=== PATIENT | male | born 1995 | race Caucasian/White ===

== ENCOUNTER 2017-12-13 12:45 | Observation (INO) ==
[2017-12-13] MEDS ORDERED: Sod Chloride 0.9% Inj 1,000 ML IV.SIG ONE (14:13)
[2017-12-13 14:35] LABS: Baso # (Auto) 0.1 th/mm3 (0.0-0.2); Baso % (Auto) 0.5 % (0.0-2.0); Eos % (Auto) 0.5 % (0.0-4.0); Hematocrit 38.6 % (39.0-51.0); Hemoglobin 13.1 gm/dL (13.0-17.0); Lymph # (Auto) 0.7 th/mm3 (1.0-4.8); Lymph % (Auto) 6.5 % (9.0-44.0); Mean Corpuscular Hemoglobin 27.7 pg (27.0-34.0); Mean Corpuscular Volume 81.5 fL (80.0-100.0); Mean Platelet Volume 7.9 fL (7.0-11.0); Mono # (Auto) 0.8 th/mm3 (0.0-0.9); Mono % (Auto) 7.8 % (0.0-8.0); Neut # (Auto) 8.7 th/mm3 (1.8-7.7); Neut % (Auto) 84.7 % (16.0-70.0); Platelet Count 302 th/mm3 (150-450); Red Blood Count 4.74 mil/mm3 (4.50-5.90); Red Cell Distribution Width 15.4 % (11.6-17.2); White Blood Count 10.3 th/mm3 (4.0-11.0)
--- NOTE | 2017-12-13 14:45 | CT ---
EXAM DATE: 12/13/2017 2:37 PM EDT AGE/SEX: 22 years / Male INDICATIONS: New onset of seizures today hit left parietal occipital area CLINICAL DATA: This is the patient's initial encounter. Patient reports that signs and symptoms have been present for 1 day and indicates a pain score of 3/10. MEDICAL/SURGICAL HISTORY: None. None. RADIATION DOSE: 56.35 CTDI (mGy) COMPARISON: No prior exams available for comparison. TECHNIQUE: CT of the head without contrast. Using automated exposure control and adjustment of the mA and/or kV according to patient size, radiation dose was kept as low as reasonably achievable to ob tain optimal diagnostic quality images. DICOM format image data is available electronically for revi ew and comparison. FINDINGS: Cerebrum: The ventricles are normal for age. No evidence of midline shift, mass lesion, hemorrhage or acute infarction. No extraaxial fluid collections are seen. Posterior Fossa: The cerebellum and brainstem are intact. The 4th ventricle is midline. The cerebe llopontine angle is unremarkable. Extracranial: The visualized portion of the orbits is intact. Skull: The calvaria is intact. No evidence of skull fracture. CONCLUSION: 1. Negative CT Head non contrast. . Electronically signed by: Iron Savage MD 12/13/2017 2:43 PM EDT
[2017-12-13 14:53] LABS: Alanine Aminotransferase 20 U/L (12-78); Albumin 3.5 g/dL (3.4-5.0); Anion Gap 6 meq/L (5-15); Aspartate Aminotransferase 19 U/L (15-37); Blood Urea Nitrogen 8 mg/dL (7-18); Calcium 8.5 mg/dL (8.5-10.1); Carbon Dioxide 28.9 meq/L (21.0-32.0); Chloride 104 meq/L (98-107); Glomerular Filtration Rate Greater Than 89 mL/min (>89); Glucose,Random 79 mg/dL (74-106); Potassium 3.5 meq/L (3.5-5.1); Sodium 139 meq/L (136-145)
[2017-12-13 14:55] LABS: Alkaline Phosphatase 63 U/L (45-117); Creatine Kinase 138 U/L (39-308); Total Protein 6.7 g/dL (6.4-8.2)
--- NOTE | 2017-12-13 15:16 | XR ---
EXAM DATE: 12/13/2017 3:09 PM EDT AGE/SEX: 22 years / Male INDICATIONS: Left elbow pain; fall after seizure. CLINICAL DATA: This is the patient's initial encounter. Patient reports that signs and symptoms have been present for 1 day and indicates a pain score of 6/10. MEDICAL/SURGICAL HISTORY: None. None. COMPARISON: No prior exams available for comparison. FINDINGS: Bony structures are intact and in normal alignment. Joints are intact without dislocation or signifi cant arthropathy. Osseous density is normal. Soft tissues are unremarkable. No radiopaque foreign bodies seen. There is no evidence of a joint effusion. CONCLUSION: Unremarkable examination. Electronically signed by: Iron Savage MD 12/13/2017 3:15 PM EDT
--- NOTE | 2017-12-13 15:16 | XR ---
EXAM DATE: 12/13/2017 3:10 PM EDT AGE/SEX: 22 years / Male INDICATIONS: Pelvic pain after seizure. CLINICAL DATA: This is the patient's initial encounter. Patient reports that signs and symptoms have been present for 1 day and indicates a pain score of 6/10. MEDICAL/SURGICAL HISTORY: None. None. COMPARISON: No prior exams available for comparison. FINDINGS: Examination of the pelvis demonstrates no evidence of fracture or dislocation. Bony mineralization i s normal. There is no widening of the sacroiliac joints. No foreign body is identified. There is go od alignment of the SI joints and pubic symphysis. CONCLUSION: Unremarkable examination. Electronically signed by: Iron Savage MD 12/13/2017 3:15 PM EDT
[2017-12-13 15:56] LABS: Amphetamine Screen,Urine Neg (Neg); Barbiturate Screen,Urine Neg (Neg); Cannabinoid Screen,Urine Pos (Neg); Cocaine Screen,Urine Neg (Neg)
[2017-12-13 15:58] LABS: Opiate Screen,Urine Neg (Neg)
--- NOTE | 2017-12-13 16:05 | ED ---
HPI General Chief complaint: Seizure Stated complaint: WC/ Fall pos seizure Time Seen by Provider: 12/13/17 14:05 Source: patient and RN notes reviewed Mode of arrival: ambulatory History of Present Illness HPI narrative: 22yM presenting with first-time seizure. The patient states that he had been taking 1 mg Xanax BID regularly until 1 week ago, when he abruptly stopped. He says that today he was at work on a ledge approximately 3 feet above the ground when his coworkers start to see him "shake" and become unresponsive, falling backward to the ground. His mother was present and says that he was shaking for about 5 minutes and had a 10-15 minute period of confusion afterward. No tongue biting or loss of bowel/ bladder control. The patient reports pain to his left elbow and left hip (landed on his left side). Does not use any anticoagulants or antiplatelets. No history of seizures in the past, no family history of seizures, admits to marijuana use but denies other illicit drug use. Related Data Home Medications Medication Instructions Recorded Confirmed No Known Home Medications 12/13/17 12/13/17 Allergies Allergy/AdvReac Type Severity Reaction Status Date / Time No Known Allergies Allergy Unverified 12/13/17 14:04 Review of Systems ROS: all other systems reviewed are negative Constitutional Denies fever(s) Eyes Denies blurry vision ENT Denies nasal congestion Cardiovascular Denies chest pain Respiratory Denies cough Gastrointestinal Denies nausea Genitourinary Denies dysuria Musculoskeletal Denies back pain Neurologic Denies confusion Psychiatric Denies confusion PMFSH History History Provided By: Patient Medical History Medical History Anxiety (Acute) Crohns disease (Acute) Surgical History Surgical History No history of previous surgery (Acute) Social History Social History Substance History: Active Abuse Second Hand Smoke Exposure: No Smoking Status: Never smoker How Often Do You Have a Drink Containing Alcohol: Never Recent Travel in [facility] within the Last 8 Weeks: No Recent Out of Country Travel within the Last 8 Weeks: No Substance Abuse Detail Marijuana: Substance Use Status: Active Immunization History Tetanus Immunization: Unsure Hx Influenza Vaccine This Season: No Exam Const General: healthy appearing and no acute distress [facility] Head: normocephalic and atraumatic Face and sinus: normal facial exam Eyes General: appearance normal, both eyes and all related structures Pupils: PERRL Neck Other: No midline cervical spinal tenderness Chest Chest: normal inspection of the chest Resp Effort & Inspection: normal respiratory effort Auscultation: no rhonchi and no wheezes Cardio Rate: regular rate Rhythm: regular rhythm GI Inspection: non-distended Palpation: soft and nontender Back/Spine/Pelvis Other: No midline thoracolumbar tenderness Mild tenderness to left iliac crest, no crepitus, no ecchymosis Leg lengths equal Skin General: no rashes or lesions noted Neuro General: alert, awake and oriented x3 Other: Pupils 3 mm and reactive bilaterally GCS 15, speech clear and fluent, no slurred speech or confusion Motor strength 5/5, no pronator drift, sensation intact to all extremities Extrem Other: Swelling and tenderness to left medial elbow, no abrasions Psych Affect: normal affect Course Consultations Consultation #1: Patient's workup shows no traumatic injuries, but urine drug screen positive for benzos (unclear if the patient stopped a week ago as he says ). The patient says that he was prescribed xanax a year ago but has more recently been "buying them on the street" and stopped because he didn't want to use it anymore. Case discussed with Dr. Reynoso of neurology, who recommends EEG/ MRI. Time: 16:25 Initial Documented Vital Signs Temperature 97.4 F L 12/13/17 13:13 Pulse Rate 77 12/13/17 13:13 Respiratory Rate 19 12/13/17 13:13 Blood Pressure 124/74 12/13/17 13:13 Pulse Oximetry 100 12/13/17 13:13 Last Documented Vital Signs Temperature 97.4 F L 12/13/17 13:13 Pulse Rate 77 12/13/17 13:13 Respiratory Rate 19 12/13/17 13:13 Blood Pressure 124/74 12/13/17 13:13 Pulse Oximetry 100 12/13/17 13:13 Medical Decision Making [facility] Narrative Medical decision making narrative: Assessment: 22yM presenting with first time seizure and fall Plan: Labs IV fluids CTH, X-ray left elbow, X-ray pelvis Urine drug screen Addendum: Patient requires obs for MRI/ EEG as per neuro recs. I had a long conversation with the patient and his family about the results of his workup and plan for further workup; they understand and agree. Case discussed with Dr. Fritz of [facility]. Medical Screen Exam Complete: Yes Emergency Medical Condition: Yes Differential Diagnosis Differential Diagnosis: Differential diagnosis includes, but is not limited to: intoxication, withdrawal, seizure disorder, rhabdomyolysis, ICH, fracture, contusion Lab Data Lab results reviewed: Yes I reviewed the patient's lab results. Result diagrams: 12/13/17 14:25 12/13/17 14:25 Lab Results 12/13/17 12/13/17 12/13/17 Range/Units 14:25 14:25 14:25 WBC 10.3 (4.0-11.0) th/mm3 RBC 4.74 (4.50-5.90) mil/mm3 Hgb 13.1 (13.0-17.0) gm/dL Hct 38.6 L (39.0-51.0) % MCV 81.5 (80.0-100.0) fL MCH 27.7 (27.0-34.0) pg MCHC 34.0 (32.0-36.0) % RDW 15.4 (11.6-17.2) % Plt Count 302 (150-450) th/mm3 MPV 7.9 (7.0-11.0) fL Neut % (Auto) 84.7 H (16.0-70.0) % Lymph % (Auto) 6.5 L (9.0-44.0) % [place] % (Auto) 7.8 (0.0-8.0) % Eos % (Auto) 0.5 (0.0-4.0) % Baso % (Auto) 0.5 (0.0-2.0) % Neut # (Auto) 8.7 H (1.8-7.7) th/mm3 Lymph # (Auto) 0.7 L (1.0-4.8) th/mm3 [place] # (Auto) 0.8 (0.0-0.9) th/mm3 Eos # (Auto) 0.0 (0.0-0.4) th/mm3 Baso # (Auto) 0.1 (0.0-0.2) th/mm3 WBC Differential . Differential Comment Auto diff final Sodium 139 (136-145) meq/L Potassium 3.5 (3.5-5.1) meq/L Chloride 104 (98-107) meq/L Carbon Dioxide 28.9 (21.0-32.0) meq/L Anion Gap 6 (5-15) meq/L BUN 8 (7-18) mg/dL Creatinine 0.89 (0.60-1.30) mg/dL Estimated GFR Greater than 89 (>89) mL/min Random Glucose 79 (74-106) mg/dL Calcium 8.5 (8.5-10.1) mg/dL Total Bilirubin 0.3 (0.2-1.0) mg/dL AST 19 (15-37) U/L ALT 20 (12-78) U/L Alkaline Phosphatase 63 (45-117) U/L Total Creatine Kinase 138 (39-308) U/L Total Protein 6.7 (6.4-8.2) g/dL Albumin 3.5 (3.4-5.0) g/dL Urine Opiates Screen (Neg) Ur Barbiturates Screen (Neg) Ur Amphetamines Screen (Neg) U Benzodiazepines Scrn (Neg) Urine Cocaine Screen (Neg) U Cannabinoids Screen (Neg) Serum Alcohol Less than 3 (0-5) mg/dL 12/13/17 Range/Units 14:58 WBC (4.0-11.0) th/mm3 RBC (4.50-5.90) mil/mm3 Hgb (13.0-17.0) gm/dL Hct (39.0-51.0) % MCV (80.0-100.0) fL MCH (27.0-34.0) pg MCHC (32.0-36.0) % RDW (11.6-17.2) % Plt Count (150-450) th/mm3 MPV (7.0-11.0) fL Neut % (Auto) (16.0-70.0) % Lymph % (Auto) (9.0-44.0) % [place] % (Auto) (0.0-8.0) % Eos % (Auto) (0.0-4.0) % Baso % (Auto) (0.0-2.0) % Neut # (Auto) (1.8-7.7) th/mm3 Lymph # (Auto) (1.0-4.8) th/mm3 [place] # (Auto) (0.0-0.9) th/mm3 Eos # (Auto) (0.0-0.4) th/mm3 Baso # (Auto) (0.0-0.2) th/mm3 WBC Differential Differential Comment Sodium (136-145) meq/L Potassium (3.5-5.1) meq/L Chloride (98-107) meq/L Carbon Dioxide (21.0-32.0) meq/L Anion Gap (5-15) meq/L BUN (7-18) mg/dL Creatinine (0.60-1.30) mg/dL Estimated GFR (>89) mL/min Random Glucose (74-106) mg/dL Calcium (8.5-10.1) mg/dL Total Bilirubin (0.2-1.0) mg/dL AST (15-37) U/L ALT (12-78) U/L Alkaline Phosphatase (45-117) U/L Total Creatine Kinase (39-308) U/L Total Protein (6.4-8.2) g/dL Albumin (3.4-5.0) g/dL Urine Opiates Screen Neg (Neg) Ur Barbiturates Screen Neg (Neg) Ur Amphetamines Screen Neg (Neg) U Benzodiazepines Scrn Pos H (Neg) Urine Cocaine Screen Neg (Neg) U Cannabinoids Screen Pos H (Neg) Serum Alcohol (0-5) mg/dL Imaging Data Radiologist's impression: Elbow X-Ray 12/13/17 14:13 CONCLUSION: Unremarkable examination. Head CT 12/13/17 14:13 CONCLUSION: 1. Negative CT Head non contrast. . Pelvis X-Ray 12/13/17 14:13 CONCLUSION: Unremarkable examination. Discharge Plan Discharge Disposition Patient Disposition: 30 Still Patient Discharge Condition Condition: Stable Discharge Details Diagnosis: Seizure, Fall Physicians Team ED Provider: Amirah Prasad Rxs /Orders / Referrals /Forms Prescriptions: No Action No Known Home Medications RF: 0 Discharge Interventions Interventions: Vital Signs Last Done: 12/13/17 13:13 Status ED Status: With Doctor
--- NOTE | 2017-12-13 17:58 | P.HP ---
History of Present Illness Service: [facility] Primary Care Physician: [place] Chief Complaint: "Seizure, fall" History of Present Illness: Patient is a 22-year-old male with past medical history of Crohn's disease, marijuana use, anxiety, depression who came into the hospital secondary to seizures. Patient states that this is the first time he had seizures. States that he has been taking Xanax before started about a year ago. Previously he has been on Xanax under medical professional for about 3-4 months but he has been discontinued on it. Patient found away to get Xanax on the streets. States that he was doing well and then he decided to quit cold turkey yesterday. 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 He was caught when he fell, unknown if he hit his head, but patient states possibly he did. Reports body pain back, bilateral side, and coccyx area. Denies SOB/ dyspnea. Denies chest pain, palpitations, headaches, dizziness. Denies fevers, chills, n/v/d. Denies dysuria. Patient had a video of the surveillance camera. Reviewed video, patient appears to be in tonic-clonic seizure. Head CT negative Pelvic x-ray unremarkable Elbow x-ray unremarkable U tox positive for benzodiazepine, cannabinoids Family history, both parents are healthy Review of Systems All other systems reviewed negative except as stated [facility] - History History Provided By: Patient - Medical History Medical History: Medical History (Last Reviewed 12/13/17 @ 16:06 by Amirah Prasad DO) Anxiety Crohns disease - Surgical History Surgical History: Surgical History (Last Reviewed 12/13/17 @ 16:07 by Amirah Prasad DO) No history of previous surgery - Tobacco History Second Hand Smoke Exposure: No Smoking Status: Never smoker - Alcohol History How Often Do You Have a Drink Containing Alcohol: Never - Substance Use History Substance History: Active Abuse - Substance Use Type Marijuana Status: Active - Travel History Recent Travel in the [place] Within the Last 8 Weeks: No Recent Travel Out of the Country Within the Last 8 Weeks: No - Immunization History Tetanus Immunization: Unsure Hx Influenza Vaccine This Season: No Medications and Allergies Allergies Allergy/AdvReac Type Severity Reaction Status Date / Time No Known Allergies Allergy Unverified 12/13/17 14:04 Home Medications Medication Instructions Recorded Confirmed Type No Known Home Medications 12/13/17 12/13/17 History Exam Vital signs: Vital Signs 12/13/17 13:13 Temperature 97.4 F L Pulse Rate 77 Respiratory Rate 19 Blood Pressure 124/74 Pulse Oximetry 100 Intake & Output 12/12/17 12/13/17 12/13/17 18:59 06:59 18:59 Weight 68.039 kg Narrative: GENERAL: This is a well-nourished, well-developed patient, in no apparent distress. SKIN: Warm and dry HEENT: Normocephalic. Pupils equal round and reactive. Nose without bleeding. Airway patent. NECK: Trachea midline. Supple. CARDIOVASCULAR: Regular rate and rhythm without murmurs, gallops, or rubs. RESPIRATORY: Clear to auscultation. Breath sounds equal bilaterally. No wheezes , rales, or rhonchi. GASTROINTESTINAL: Abdomen soft, non-tender, nondistended. Bowel Sounds normoactive x4. MUSCULOSKELETAL: Extremities without clubbing, cyanosis, or edema. Back area tender to palpate. NEUROLOGICAL: Awake and alert. Oriented to time, place, person. No focal neuro deficit. Moves all extremities. Normal speech. Results - Labs CBC & Chem 7: 12/13/17 14:25 12/13/17 14:25 Labs: Laboratory Results - last 24 hr 12/13/17 12/13/17 12/13/17 14:25 14:25 14:25 WBC 10.3 RBC 4.74 Hgb 13.1 Hct 38.6 L MCV 81.5 MCH 27.7 MCHC 34.0 RDW 15.4 Plt Count 302 MPV 7.9 Neut % (Auto) 84.7 H Lymph % (Auto) 6.5 L [place] % (Auto) 7.8 Eos % (Auto) 0.5 Baso % (Auto) 0.5 Neut # (Auto) 8.7 H Lymph # (Auto) 0.7 L [place] # (Auto) 0.8 Eos # (Auto) 0.0 Baso # (Auto) 0.1 WBC Differential . Differential Comment Auto diff final Sodium 139 Potassium 3.5 Chloride 104 Carbon Dioxide 28.9 Anion Gap 6 BUN 8 Creatinine 0.89 Estimated GFR Greater than 89 Random Glucose 79 Calcium 8.5 Total Bilirubin 0.3 AST 19 ALT 20 Alkaline Phosphatase 63 Total Creatine Kinase 138 Total Protein 6.7 Albumin 3.5 Urine Opiates Screen Ur Barbiturates Screen Ur Amphetamines Screen U Benzodiazepines Scrn Urine Cocaine Screen U Cannabinoids Screen Serum Alcohol Less than 3 12/13/17 14:58 WBC RBC Hgb Hct MCV MCH MCHC RDW Plt Count MPV Neut % (Auto) Lymph % (Auto) [place] % (Auto) Eos % (Auto) Baso % (Auto) Neut # (Auto) Lymph # (Auto) [place] # (Auto) Eos # (Auto) Baso # (Auto) WBC Differential Differential Comment Sodium Potassium Chloride Carbon Dioxide Anion Gap BUN Creatinine Estimated GFR Random Glucose Calcium Total Bilirubin AST ALT Alkaline Phosphatase Total Creatine Kinase Total Protein Albumin Urine Opiates Screen Neg Ur Barbiturates Screen Neg Ur Amphetamines Screen Neg U Benzodiazepines Scrn Pos H Urine Cocaine Screen Neg U Cannabinoids Screen Pos H Serum Alcohol - Imaging Impressions Elbow X-Ray 12/13/17 14:13 CONCLUSION: Unremarkable examination. Head CT 12/13/17 14:13 CONCLUSION: 1. Negative CT Head non contrast. . Pelvis X-Ray 12/13/17 14:13 CONCLUSION: Unremarkable examination. Caprini VTE Risk Assessment Caprini VTE Risk Assessment: No/Low Risk (score <= 1) Caprini Risk Assessment Model: Point Value = 1 Point Value = 2 Point Value = 3 Point Value = 5 Age 41-60 Minor surgery BMI > 25 kg/m2 Swollen legs Varicose veins or History of unexplained or recurrent spontaneous Oral contraceptives or hormone replacement Sepsis (< 1 month) Serious lung disease, including pneumonia (< 1 month) Abnormal pulmonary function Acute myocardial infarction Congestive heart failure (< 1 month) History of inflammatory bowel disease Medical patient at bed rest Age 61-74 Arthroscopic surgery Major open surgery (> 45 min) Laparoscopic surgery (> 45 min) Malignancy Confined to bed (> 72 hours) Immobilizing plaster cast Central venous access Age >= 75 History of VTE Family history of VTE Factor V Leiden Prothrombin [id number] Lupus anticoagulant Anticardiolipin antibodies Elevated serum homocysteine Heparin-induced thrombocytopenia Other congenital or acquired thrombophilia Stroke (< 1 month) Elective arthroplasty Hip, pelvis, or leg fracture Acute spinal cord injury (< 1 month) Prophylaxis Regimen: Total Risk Factor Score Risk Level Prophylaxis Regimen 0-1 Low Early ambulation 2 Moderate Order ONE of the following: *Sequential Compression Device (SCD) *Heparin 5000 units SQ BID 3-4 Higher Order ONE of the following medications: *Heparin 5000 units SQ TID *Enoxaparin/Lovenox 40 mg SQ daily (WT < 150 kg, CrCl > 30 mL/min) *Enoxaparin/Lovenox 30 mg SQ daily (WT < 150 kg, CrCl > 10-29 mL/min) *Enoxaparin/Lovenox 30 mg SQ BID (WT < 150 kg, CrCl > 30 mL/min) AND/OR *Sequential Compression Device (SCD) 5 or more Highest Order ONE of the following medications: *Heparin 5000 units SQ TID (Preferred with Epidurals) *Enoxaparin/Lovenox 40 mg SQ daily (WT < 150 kg, CrCl > 30 mL/min) *Enoxaparin/Lovenox 30 mg SQ daily (WT < 150 kg, CrCl > 10-29 mL/min) *Enoxaparin/Lovenox 30 mg SQ BID (WT < 150 kg, CrCl > 30 mL/min) AND *Sequential Compression Device (SCD) Assessment and Plan - Plan Patient is a 22-year-old male who came in to the ED for seizure, first time. Seizure withdrawal S/P Fall -Benzodiazepine illicit use, quit taking meds yesterday after more than a year regularly taking the medication -Head CT negative -Pelvic x-ray unremarkable -Elbow x-ray unremarkable -U tox positive for benzodiazepine, cannabinoids -Neurology consulted, appreciate recommendation and plan for EEG, MRI -Seizure precaution. Neurochecks every 4 P Anxiety, Depression Benzodiazepine use, illicit -[facility] Prescription Drug Monitoring Database has been queried and verified prior to prescribing the controlled substance. -Not on any prescription RX - admits to get it from the street -Previously was on Paxil, states that it did not made him feel good. -We will start clonazepam 0.5 mg twice daily, Lexapro as per recommendation of neurology Status post fall -Pain management with Tylenol, Toradol -Monitor DVT prop SCD Code Status: Full code Discussed Condition With: Patient, father, Dr. Fritz, Dr. Reynoso Discharge Planning: Plan to DC home when clinically improved. Pending diagnostics.
[2017-12-13] MEDS ORDERED: Bisacodyl 10 MG Supp RECTAL PRN (18:13)
[2017-12-13] MEDS ORDERED: Acetaminophen 325 MG Tablet PO PRN (18:14)
[2017-12-13] MEDS ORDERED: Ketorolac Inj 30 MG/ML (IVP) Vial IV.PUSH PRN (18:15)
--- NOTE | 2017-12-13 19:26 | XR ---
EXAM DATE: 12/13/2017 6:32 PM EDT AGE/SEX: 22 years / Male INDICATIONS: Neck pain; fall from seizure. CLINICAL DATA: This is the patient's initial encounter. Patient reports that signs and symptoms have been present for 1 day and indicates a pain score of 1/10. MEDICAL/SURGICAL HISTORY: None. None. COMPARISON: No prior exams available for comparison. FINDINGS: The vertebral bodies are in normal alignment without evidence of compression deformity. Bone density is normal for age. Soft tissues are grossly intact. CONCLUSION: Negative cervical spine series. Electronically signed by: Bert Bae MD 12/13/2017 7:24 PM EDT
--- NOTE | 2017-12-13 19:40 | MB ---
cc: Jose Reynoso MD DATE: 12/13/2017 HISTORY OF PRESENT ILLNESS: A 22-year-old right-handed man who has Crohn's disease, some anxiety and depression. He was on Xanax for about a year, 1 mg twice a day or once a day. 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 About 30 minutes postictal episode after that. He never had a seizure before. No odd smells, tastes dimas vu, never woke up and wet the bed or bit his tongue beyond the fact he has had some incontinence with his Crohn's. He has chronic diarrhea. SOCIAL HISTORY: Not a smoker or drinker. He does some marijuana occasionally. FAMILY HISTORY: Negative for cancer or seizure. Positive for stroke. REVIEW OF SYSTEMS: No hypertension, diabetes, hypercholesterolemia, CA, CABG, cardiac arrhythmia, renal, hepatic, pulmonary disease, thyroid disease, lupus, ulcer, cancer, seizure or stroke. HOME MEDICATION: He had not been taking Xanax. Had been on Prednisone and he was on amoxicillin at home. He smokes marijuana. He has a medical marijuana card. PHYSICAL EXAMINATION: VITAL SIGNS: Afebrile 77, 19 124/74. NECK: There were no carotid bruits. HEART: Regular rhythm. I did not detect a murmur. NEUROLOGIC: Pupils are equal. Visual carter are full. Extraocular movements intact without nystagmus. Disks are sharp. Face is symmetric with normal sensation. Tongue was midline. There is no drift. He had normal strength in upper and lower extremities bilaterally. DTRs are 2+ and symmetric throughout. Toes downgoing bilaterally. Pinprick is intact. He is not tested on [id number]. Speech is fluent. He is not aphasic. No apparent distress. LABS: CBC normal. Urine drug screen positive for benzos and marijuana. Basic metabolic profile, LFTs, CPK negative. He had a pelvic x-ray that was normal. He had an elbow x-ray that was normal. He had a CT scan of the brain that was read as normal. On review of those films, do appear to be normal. IMPRESSION: 1. Likely a Xanax withdrawal seizure. It would be okay to put him on a low dose of Xanax. I did talk to the med team. I think they could use a low of Valium. 22. For his anxiety we will put him on some Lexapro 10 mg a day. 3. I would recommend a gluten-free diet for the Crohn's disease and see if that could help with this. 4. We will just check a few other labs, an EEG and MRI. If his MRI is negative, he could be discharged. 5. I did tell him he is not to drive for 6 months, work on power machinery, including the press, power tools, climb heights, ride a motorcycle, ride in the back of the motorcycle, take a bath, swim alone, ride on a bicycle or a skateboard or anything else if he had a seizure he could be in danger, including of course driving a car and he does agree to do that for the next 6 months. Jose Reynoso MD DJM/chucho , 06:11 PM , 06:19 PM
[2017-12-13] MEDS: clonazePAM 0.5 MG Tablet PO SCH (20:27)
[2017-12-13] MEDS: Senna/Docusate Sodium 8.6/50 MG Tablet PO SCH (20:28)
[2017-12-13] MEDS ORDERED: Escitalopram 10 MG Tablet PO SCH (21:00)
[2017-12-13 21:49] LABS: Free T4 (Free Thyroxine) 1.26 ng/dL (0.76-1.46); Thyroid Stimulating Hormone 0.713 uIU/mL (0.358-3.740); Vitamin B12 386 pg/mL (193-986)
[2017-12-14 06:43] LABS: Baso # (Auto) 0.1 th/mm3 (0.0-0.2); Baso % (Auto) 0.9 % (0.0-2.0); Eos # (Auto) 0.1 th/mm3 (0.0-0.4); Hematocrit 36.9 % (39.0-51.0); Hemoglobin 12.3 gm/dL (13.0-17.0); Lymph # (Auto) 1.3 th/mm3 (1.0-4.8); Lymph % (Auto) 19.3 % (9.0-44.0); Mean Corpuscular HGB Conc 33.4 % (32.0-36.0); Mean Corpuscular Hemoglobin 26.9 pg (27.0-34.0); Mean Corpuscular Volume 80.7 fL (80.0-100.0); Mean Platelet Volume 8.2 fL (7.0-11.0); Mono # (Auto) 0.7 th/mm3 (0.0-0.9); Mono % (Auto) 11.3 % (0.0-8.0); Neut # (Auto) 4.4 th/mm3 (1.8-7.7); Neut % (Auto) 67.5 % (16.0-70.0); Platelet Count 295 th/mm3 (150-450); Red Blood Count 4.57 mil/mm3 (4.50-5.90); Red Cell Distribution Width 15.4 % (11.6-17.2); White Blood Count 6.5 th/mm3 (4.0-11.0)
[2017-12-14 07:00] LABS: Albumin 3.2 g/dL (3.4-5.0); Anion Gap 9 meq/L (5-15); Aspartate Aminotransferase 15 U/L (15-37); Blood Urea Nitrogen 7 mg/dL (7-18); Calcium 8.6 mg/dL (8.5-10.1); Carbon Dioxide 26.3 meq/L (21.0-32.0); Chloride 110 meq/L (98-107); Glomerular Filtration Rate Greater Than 89 mL/min (>89); Glucose,Random 90 mg/dL (74-106); Potassium 3.4 meq/L (3.5-5.1); Sodium 145 meq/L (136-145)
[2017-12-14 07:06] LABS: Alanine Aminotransferase 19 U/L (12-78); Alkaline Phosphatase 59 U/L (45-117); Total Protein 6.2 g/dL (6.4-8.2)
--- NOTE | 2017-12-14 07:20 | P.PNNEU ---
Subjective Subjective Comments: nv overnoc hx crohns no ibrahim not too anxious now Active Medications: Active Medications Acetaminophen (Tylenol) 650 mg PO Q4H PRN PRN Reason: Temp > 100.4, IBRAHIM, Pain 1-4 Al Hydroxide/Mg Hydroxide (Milk Of Magnesia Liq) 30 ml PO Q12H PRN PRN Reason: Mild Constipation Bisacodyl (Dulcolax Supp) 10 mg RECTAL DAILY PRN PRN Reason: SEVERE CONSITIPATION Clonazepam (Klonopin) 0.5 mg PO Q12HR [facility] Last Admin: 12/13/17 20:27 Dose: 0.5 mg Escitalopram Oxalate (Lexapro) 10 mg PO HS [facility] Last Admin: 12/13/17 20:27 Dose: 10 mg Ketorolac Tromethamine (Toradol Inj) 15 mg IV.PUSH Q6H PRN PRN Reason: Pain 5-10 Stop: 12/18/17 18:14 Last Admin: 12/13/17 18:48 Dose: 15 mg Lactulose (Lactulose Liq) 30 ml PO DAILY PRN PRN Reason: SEVERE CONSITIPATION Ondansetron HCl (Zofran Inj) 4 mg IV.PUSH Q6H PRN PRN Reason: NAUSEA OR VOMITING Senna/Docusate Sodium (Michelle-Colace) 1 tab PO BID [facility] Last Admin: 12/13/17 20:28 Dose: Not Given Sennosides (Senokot) 17.2 mg PO Q12H PRN PRN Reason: Moderate Constipation Allergies/Adverse Reactions: Allergies Allergy/AdvReac Type Severity Reaction Status Date / Time No Known Allergies Allergy Verified 12/13/17 19:48 Physical Exam Vital signs: Vital Signs 12/13/17 13:13 12/13/17 17:34 12/13/17 18:44 Temperature 97.4 F L 98.6 F Pulse Rate 77 80 73 Respiratory Rate 19 16 16 Blood Pressure 124/74 122/68 130/73 Pulse Oximetry 100 100 99 12/13/17 19:29 12/13/17 20:00 12/14/17 00:00 Temperature 99.5 F 98.5 F Pulse Rate 74 68 60 Respiratory Rate 18 18 Blood Pressure 108/58 L 111/64 Pulse Oximetry 100 99 12/14/17 03:25 12/14/17 04:00 Temperature 98.7 F Pulse Rate 57 L 52 L Respiratory Rate 16 Blood Pressure 108/55 L Pulse Oximetry 100 Intake & Output 12/13/17 12/14/17 12/14/17 18:59 06:59 18:59 Intake Total 1000 / 1000 Output Total 50 / 50 Balance 1000 / 1000 -50 / -50 Weight 68.039 kg 68.039 kg Intake: IV 1000 / 1000 NS Inj 1,000 ML @ Wide Open IV. 1000 / 1000 SIG BOLUS ONE Rx#:[id number] Output: Emesis 50 / 50 Other: Date of Last Bowel Movement 12/13/17 Weight On Admission 68.039 kg Narrative: awake alert nad voice calm Objective Laboratory Results - last 24 hr 12/13/17 12/13/17 12/13/17 14:25 14:25 14:25 WBC 10.3 RBC 4.74 Hgb 13.1 Hct 38.6 L MCV 81.5 MCH 27.7 MCHC 34.0 RDW 15.4 Plt Count 302 MPV 7.9 Neut % (Auto) 84.7 H Lymph % (Auto) 6.5 L [place] % (Auto) 7.8 Eos % (Auto) 0.5 Baso % (Auto) 0.5 Neut # (Auto) 8.7 H Lymph # (Auto) 0.7 L [place] # (Auto) 0.8 Eos # (Auto) 0.0 Baso # (Auto) 0.1 WBC Differential . Differential Comment Auto diff final ESR Sodium 139 Potassium 3.5 Chloride 104 Carbon Dioxide 28.9 Anion Gap 6 BUN 8 Creatinine 0.89 Estimated GFR Greater than 89 Random Glucose 79 Calcium 8.5 Total Bilirubin 0.3 AST 19 ALT 20 Alkaline Phosphatase 63 Total Creatine Kinase 138 Total Protein 6.7 Albumin 3.5 Vitamin B12 TSH Free T4 Urine Opiates Screen Ur Barbiturates Screen Ur Amphetamines Screen U Benzodiazepines Scrn Urine Cocaine Screen U Cannabinoids Screen Serum Alcohol Less than 3 Rheumatoid Factor Scrn Rheumatoid Factor Titer 12/13/17 12/13/17 12/13/17 14:58 20:45 20:45 WBC RBC Hgb Hct MCV MCH MCHC RDW Plt Count MPV Neut % (Auto) Lymph % (Auto) [place] % (Auto) Eos % (Auto) Baso % (Auto) Neut # (Auto) Lymph # (Auto) Bull[place] # (Auto) Eos # (Auto) Baso # (Auto) WBC Differential Differential Comment ESR 14 Sodium Potassium Chloride Carbon Dioxide Anion Gap BUN Creatinine Estimated GFR Random Glucose Calcium Total Bilirubin AST ALT Alkaline Phosphatase Total Creatine Kinase Total Protein Albumin Vitamin B12 386 TSH 0.713 Free T4 1.26 Urine Opiates Screen Neg Ur Barbiturates Screen Neg Ur Amphetamines Screen Neg U Benzodiazepines Scrn Pos H Urine Cocaine Screen Neg U Cannabinoids Screen Pos H Serum Alcohol Rheumatoid Factor Scrn Negative Rheumatoid Factor Titer Not Reportable 12/14/17 12/14/17 05:29 05:29 WBC 6.5 RBC 4.57 Hgb 12.3 L Hct 36.9 L MCV 80.7 MCH 26.9 L MCHC 33.4 RDW 15.4 Plt Count 295 MPV 8.2 Neut % (Auto) 67.5 Lymph % (Auto) 19.3 [place] % (Auto) 11.3 H Eos % (Auto) 1.0 Baso % (Auto) 0.9 Neut # (Auto) 4.4 Lymph # (Auto) 1.3 [place] # (Auto) 0.7 Eos # (Auto) 0.1 Baso # (Auto) 0.1 WBC Differential . Differential Comment Auto diff final ESR Sodium 145 Potassium 3.4 L Chloride 110 H Carbon Dioxide 26.3 Anion Gap 9 BUN 7 Creatinine 0.77 Estimated GFR Greater than 89 Random Glucose 90 Calcium 8.6 Total Bilirubin 0.4 AST 15 ALT 19 Alkaline Phosphatase 59 Total Creatine Kinase Total Protein 6.2 L Albumin 3.2 L Vitamin B12 TSH Free T4 Urine Opiates Screen Ur Barbiturates Screen Ur Amphetamines Screen U Benzodiazepines Scrn Urine Cocaine Screen U Cannabinoids Screen Serum Alcohol Rheumatoid Factor Scrn Rheumatoid Factor Titer Review/Management - Review/Management Daily Summary: imp if mri neg and eeg done ok by me to dc on lexapro and low dose benzo taper
[2017-12-14 07:54] VITALS: BP 110/65; TEMP 98.4; O2SAT 99
[2017-12-14] MEDS: Senna/Docusate Sodium 8.6/50 MG Tablet PO SCH (09:10)
[2017-12-14] MEDS: clonazePAM 0.5 MG Tablet PO SCH (09:10)
[2017-12-14] MEDS ORDERED: Gadobutrol PF 7.5 MMOL/7.5 ML Vial (for RAD) IV.SIG ONE (10:17)
--- NOTE | 2017-12-14 10:31 | MR ---
EXAM DATE: 12/14/2017 10:25 AM EDT AGE/SEX: 22 years / Male INDICATIONS: Seizures. CLINICAL DATA: This is the patient's initial encounter. Patient reports that signs and symptoms have been present for 1 day and indicates a pain score of 0/10. MEDICAL/SURGICAL HISTORY: . Crohn's. None. COMPARISON: [facility] [place], 12/13/2017. . TECHNIQUE: Multiplanar, multisequence examination of the brain was performed without and with 7 ml Ga davist (gadobutrol) contrast as a single exam dose. FINDINGS: Diffusion weighted images demonstrate no evidence for acute infarction. Ventricles and cisterns are o f normal size and configuration. The signal intensity of the brain is normal. There are no signs of i ntracranial hemorrhage, mass or infarct. There are no abnormal areas of enhancement identified follow ing contrast administration. CONCLUSION: 1. Negative MR Brain with and without contrast. Electronically signed by: Ollie Christianson MD 12/14/2017 10:30 AM EDT
--- NOTE | 2017-12-14 11:32 | P.PN ---
Subjective Interval history: Follow-up visit Crohn's disease, marijuana use, seizure from benzodiazepine withdrawal. Patient seen and examined today. Reports she is doing well. No seizure episode reported overnight. As per nursing no acute issues overnight. Denies pain and discomfort. Denies SOB/ dyspnea. Denies chest pain, palpitations, headaches, dizziness. Denies fevers, chills, n/v/d. Denies dysuria. Physical Exam Vital signs: Vital Signs 12/13/17 13:13 12/13/17 17:34 12/13/17 18:44 Temperature 97.4 F L 98.6 F Pulse Rate 77 80 73 Respiratory Rate 19 16 16 Blood Pressure 124/74 122/68 130/73 Pulse Oximetry 100 100 99 12/13/17 19:29 12/13/17 20:00 12/14/17 00:00 Temperature 99.5 F 98.5 F Pulse Rate 74 68 60 Respiratory Rate 18 18 Blood Pressure 108/58 L 111/64 Pulse Oximetry 100 99 12/14/17 03:25 12/14/17 04:00 12/14/17 07:51 Temperature 98.7 F 98.4 F Pulse Rate 57 L 52 L 55 L Respiratory Rate 16 16 Blood Pressure 108/55 L 110/65 Pulse Oximetry 100 99 Intake & Output 12/13/17 12/14/17 12/14/17 18:59 06:59 18:59 Intake Total 1000 / 1000 Output Total 50 / 50 Balance 1000 / 1000 -50 / -50 Weight 68.039 kg 68.039 kg Intake: IV 1000 / 1000 NS Inj 1,000 ML @ Wide Open IV. 1000 / 1000 SIG BOLUS ONE Rx#:[id number] Output: Emesis 50 / 50 Other: Date of Last Bowel Movement 12/13/17 Weight On Admission 68.039 kg Narrative: GENERAL: This is a well-nourished, well-developed patient, in no apparent distress. SKIN: Warm and dry HEENT: Normocephalic. Pupils equal round and reactive. Nose without bleeding. Airway patent. NECK: Trachea midline. Supple. CARDIOVASCULAR: Regular rate and rhythm without murmurs, gallops, or rubs. RESPIRATORY: Clear to auscultation. Breath sounds equal bilaterally. No wheezes , rales, or rhonchi. GASTROINTESTINAL: Abdomen soft, non-tender, nondistended. Bowel Sounds normoactive x4. MUSCULOSKELETAL: Extremities without clubbing, cyanosis, or edema. Back area tender to palpate. NEUROLOGICAL: Awake and alert. Oriented to time, place, person. No focal neuro deficit. Moves all extremities. Normal speech. Results - Labs CBC & Chem 7: 12/14/17 05:29 12/14/17 05:29 Laboratory Results - last 24 hr 12/13/17 12/13/17 12/13/17 14:25 14:25 14:25 WBC 10.3 RBC 4.74 Hgb 13.1 Hct 38.6 L MCV 81.5 MCH 27.7 MCHC 34.0 RDW 15.4 Plt Count 302 MPV 7.9 Neut % (Auto) 84.7 H Lymph % (Auto) 6.5 L [place] % (Auto) 7.8 Eos % (Auto) 0.5 Baso % (Auto) 0.5 Neut # (Auto) 8.7 H Lymph # (Auto) 0.7 L [place] # (Auto) 0.8 Eos # (Auto) 0.0 Baso # (Auto) 0.1 WBC Differential . Differential Comment Auto diff final ESR Sodium 139 Potassium 3.5 Chloride 104 Carbon Dioxide 28.9 Anion Gap 6 BUN 8 Creatinine 0.89 Estimated GFR Greater than 89 Random Glucose 79 Calcium 8.5 Total Bilirubin 0.3 AST 19 ALT 20 Alkaline Phosphatase 63 Total Creatine Kinase 138 Total Protein 6.7 Albumin 3.5 Vitamin B12 TSH Free T4 Urine Opiates Screen Ur Barbiturates Screen Ur Amphetamines Screen U Benzodiazepines Scrn Urine Cocaine Screen U Cannabinoids Screen Serum Alcohol Less than 3 Rheumatoid Factor Scrn Rheumatoid Factor Titer 12/13/17 12/13/17 12/13/17 14:58 20:45 20:45 WBC RBC Hgb Hct MCV MCH MCHC RDW Plt Count MPV Neut % (Auto) Lymph % (Auto) [place] % (Auto) Eos % (Auto) Baso % (Auto) Neut # (Auto) Lymph # (Auto) [place] # (Auto) Eos # (Auto) Baso # (Auto) WBC Differential Differential Comment ESR 14 Sodium Potassium Chloride Carbon Dioxide Anion Gap BUN Creatinine Estimated GFR Random Glucose Calcium Total Bilirubin AST ALT Alkaline Phosphatase Total Creatine Kinase Total Protein Albumin Vitamin B12 386 TSH 0.713 Free T4 1.26 Urine Opiates Screen Neg Ur Barbiturates Screen Neg Ur Amphetamines Screen Neg U Benzodiazepines Scrn Pos H Urine Cocaine Screen Neg U Cannabinoids Screen Pos H Serum Alcohol Rheumatoid Factor Scrn Negative Rheumatoid Factor Titer Not Reportable 12/14/17 12/14/17 05:29 05:29 WBC 6.5 RBC 4.57 Hgb 12.3 L Hct 36.9 L MCV 80.7 MCH 26.9 L MCHC 33.4 RDW 15.4 Plt Count 295 MPV 8.2 Neut % (Auto) 67.5 Lymph % (Auto) 19.3 [place] % (Auto) 11.3 H Eos % (Auto) 1.0 Baso % (Auto) 0.9 Neut # (Auto) 4.4 Lymph # (Auto) 1.3 [place] # (Auto) 0.7 Eos # (Auto) 0.1 Baso # (Auto) 0.1 WBC Differential . Differential Comment Auto diff final ESR Sodium 145 Potassium 3.4 L Chloride 110 H Carbon Dioxide 26.3 Anion Gap 9 BUN 7 Creatinine 0.77 Estimated GFR Greater than 89 Random Glucose 90 Calcium 8.6 Total Bilirubin 0.4 AST 15 ALT 19 Alkaline Phosphatase 59 Total Creatine Kinase Total Protein 6.2 L Albumin 3.2 L Vitamin B12 TSH Free T4 Urine Opiates Screen Ur Barbiturates Screen Ur Amphetamines Screen U Benzodiazepines Scrn Urine Cocaine Screen U Cannabinoids Screen Serum Alcohol Rheumatoid Factor Scrn Rheumatoid Factor Titer - Imaging Impressions Cervical Spine X-Ray 12/13/17 00:00 CONCLUSION: Negative cervical spine series. Elbow X-Ray 12/13/17 14:13 CONCLUSION: Unremarkable examination. Head CT 12/13/17 14:13 CONCLUSION: 1. Negative CT Head non contrast. . Pelvis X-Ray 12/13/17 14:13 CONCLUSION: Unremarkable examination. Head MRI 12/14/17 18:08 CONCLUSION: 1. Negative MR Brain with and without contrast. Assessment and Plan - Plan Patient is a 22-year-old male who came in to the ED for seizure, first time. Seizure withdrawal S/P Fall -Benzodiazepine illicit use, quit taking meds yesterday after more than a year regularly taking the medication -Head CT negative -Pelvic x-ray unremarkable -Elbow x-ray unremarkable -U tox positive for benzodiazepine, cannabinoids -Neurology consulted, appreciate recommendation and plan for EEG, MRI -Seizure precaution. Neurochecks -Advised no driving in 6 months as recommended by neurology -Started patient on clonazepam yesterday we will do clonazepam tapered dose and outpatient as recommended by urologist. Anxiety, Depression Benzodiazepine use, illicit -[facility] Prescription Drug Monitoring Database has been queried and verified prior to prescribing the controlled substance. -Not on any prescription RX - admits to get it from the street -Previously was on Paxil, states that it did not made him feel good. -clonazepam 0.5 mg twice daily, Lexapro as per recommendation of neurology Status post fall -Pain management with Tylenol, Toradol -Improved Crohn's disease, chronic diarrhea -Medical marijuana use. -Prednisone use -Advised for gluten-free diet -Patient is getting the medication through Marijuana certified MD for medical use. The continuation of the drug is based on presentation that patient is legally being medically managed with the use of marijuana. The provider who continued the medication will not and is not certified to prescribed marijuana. DVT prop SCD Discharge patient to home Condition on discharge: Improved Regular Diet as tolerated Activity DO NOT drive for 6 months, work on power machinery, including the press, power tools, climb heights, ride a motorcycle, ride in the back of the motorcycle, take a bath, swim alone, ride on a bicycle or a skateboard or anything else that if he had a seizure he could be in danger. Rx written: Clonazepam Taper Follow-up with primary care physician Code Status: Full code Discussed Condition With: Patient, nurse, Dr. Sterling Discharge Planning: Plan to DC home today if MRI and EEG negative
[2017-12-14 12:06] VITALS: RESP 18
[2017-12-14 12:12] VITALS: PULSE 58
--- NOTE | 2017-12-14 14:52 | MG ---
cc: Ren Craig MD, PhD TEST NUMBER: [id number]. TECHNIQUE: A 17-channel EEG. DESCRIPTION: Background rhythm reveals a symmetrical alpha rhythm, frequency is about 9 Hz, amplitude 20 microvolts. There is the expected anterior decrement to the response. Rare muscle artifact is identified. No lateralizing features are identified and no epileptiform features are seen. Photic stimulation does result in a normal driving response. INTERPRETATION: This is a normal EEG. Ren Craig MD, PhD RIKI/ , 02:41 PM , 02:46 PM
[2017-12-14 15:35] LABS: Anti-Nuclear Antibody Screen Neg (Neg)
== END 2017-12-14 13:09 | disposition home or self-care (01) ==
LOC: NEDA 12:45 → NEPD 12:45 → NEDA 18:22 → NEPGCP 18:41
PROVIDERS: ADMIT Hospitalist; ATTEND Hospitalist